=== PATIENT | male | born 1985 | race Caucasian/White ===

== ENCOUNTER → 2022-06-22 08:37 | Outpatient (CLI) | payer OTHER, SELFPAY ==
--- NOTE | 2022-06-22 | DI.MRI.S_ITS ---
PROCEDURE: MR KNEE RT WO CON INDICATIONS: Sports injury, right knee pain. TECHNIQUE: Noncontrast sagittal PD fast spin echo and T2 fast spin echo with fat saturation, sagittal 3-D FLASH with fat saturation; coronal T1 spin echo and PD fast spin echo with fat saturation, and axial PD fast spin echo with fat saturation through the knee. COMPARISON: None. FINDINGS: Image quality: Excellent. Menisci: Medial meniscus is intact. There is linear oblique high T2 signal intensity traversing the inner, middle, and peripheral thirds of the posterior horn lateral meniscus, demonstrating inferior articular surface extension. Cruciate ligaments: The anterior cruciate ligament is intact, but demonstrates mild internal and surrounding T2 signal elevation. Posterior cruciate ligament is intact.. Medial structures: The medial collateral ligament appears intact. Visualized portions of the pes anserinus tendons appear normal. No abnormal bursal fluid. Lateral structures: The lateral collateral ligament demonstrates mild internal T2 signal elevation at the femoral origin. long and short heads of the biceps femoris tendon appear intact. The popliteus tendon appears normal. Iliotibial band appears normal. Anterior structures: The quadriceps and patellar tendons appear intact. Patellar alignment is normal. No femoral trochlear dysplasia or ventral trochlear prominence. No edema in the infrapatellar fat pad. Bones and cartilage: No displaced nor acute appearing fracture. There is mild chronic appearing cortical irregularity of the posterior weight-bearing aspect of the lateral tibial plateau, suggestive of healed fracture deformity. There is moderate ill-defined T2 signal elevation within the lateral tibial plateau posteriorly. Mild articular cartilage loss diffusely overlies the weight-bearing aspects of the medial femoral condyle and medial tibial plateau. There is a focal high-grade articular cartilage fissure overlying the lateral patellar apex measuring roughly 1-2 mm diameter. Joint space: There is a moderate knee joint effusion and a trace Jewell's cyst. Normal appearing synovial plicae are incidentally noted. IMPRESSION: 1. Contusion within the lateral tibial plateau posteriorly. There is evidence of a chronic/healed underlying fracture in this location. 2. ACL sprain. 3. Low-grade partial thickness lateral collateral ligament tear. 4. Lateral meniscal tear. 5. Knee joint effusion and Jewell's cyst. 6. Medial and patellofemoral compartment articular cartilage loss. Dictated by: Janeen Gracia M.D. on 06/22/2022 at 10:32 Approved by: Janeen Gracia M.D. on 06/22/2022 at 10:35
== END ==
DX: S83.511A Sprain of anterior cruciate ligament of right knee, initial encounter (principal); S83.421A Sprain of lateral collateral ligament of right knee, initial encounter; S83.281A Other tear of lateral meniscus, current injury, right knee, initial encounter; S80.01XA Contusion of right knee, initial encounter; M25.461 Effusion, right knee; M71.21 Synovial cyst of popliteal space [Baker], right knee; M25.561 Pain in right knee
CPT/HCPCS: 73721